=== PATIENT | female | born 1950 | race Two or more races ===

== ENCOUNTER 2017-02-04 10:23 | Inpatient (IN) | payer OTHER, MEDICAID ==
[~2017-02-04] VITALS: Ht 165.1 cm; Wt 72.6 kg
[~2017-02-04 10:23] MED LIST: AMLO10TA2 PO; BENA40TA2 PO; CYAN1TAB43 PO; HYDR25TA4 PO; METF500T4 PO
[2017-02-04 10:54] LABS: BASOPHILS # (AUTO) 0.1 /CMM (0.0-0.2); BASOPHILS % (AUTO) 0.6 % (0.0-2.0); EOSINOPHILS # (AUTO) 0.3 /CMM (0.0-0.7); EOSINOPHILS % (AUTO) 3.9 % (0.0-6.0); HEMATOCRIT 34 % (33-45); HEMOGLOBIN 10.8 g/dL (11.5-14.8); LYMPHOCYTES # (AUTO) 2.1 /CMM (0.8-4.8); LYMPHOCYTES % (AUTO) 23.9 % (20.0-44.0); MEAN CORPUSCULAR HEMOGLOBIN 25 PG (26.0-33.0); MEAN CORPUSCULAR HGB CONC 32 g/dl (31.0-36.0); MEAN CORPUSCULAR VOLUME 79 fL (82-100); MONOCYTES # (AUTO) 0.8 /CMM (0.1-1.30); MONOCYTES % (AUTO) 9.6 % (2.0-12.0); NEUTROPHILS # (AUTO) 5.4 /CMM (1.8-8.9); PLATELET COUNT (AUTO) 336 /CMM (150-450); RDW COEFFICIENT OF VARIATION 14.2 (11.5-15.0); RED BLOOD CELL COUNT(AUTO) 4.27 MIL/uL (4.0-5.2); WHITE BLOOD COUNT (AUTO) 8.7 K/uL (4.3-11.0)
[2017-02-04] MEDS ORDERED: ASPIRIN 325 MG TABLET PO ONE (11:00)
[2017-02-04 11:09] LABS: CALCIUM, SERUM 8.7 mg/dL (8.5-10.1); CARBON DIOXIDE 28 mmol/L (21-32); CHLORIDE 105 mmol/L (98-107); CREATININE 1.3 mg/dL (0.6-1.3); GLUCOSE 188 mg/dL (74-106); POTASSIUM 3.6 mmol/L (3.5-5.1); SODIUM SERUM 142 mmol/L (136-145); UREA NITROGEN, BLOOD 26 mg/dL (7-18)
[2017-02-04] MEDS ORDERED: ASPIRIN 325 MG TABLET ONE ×2 (11:11→11:25)
[2017-02-04 11:12] LABS: INR 0.94 (0.87-1.13); PROTHROMBIN TIME 9.8 SECS (9.5-12.7)
[2017-02-04 11:18] LABS: TROPONIN I < 0.017 ng/mL (0.00-0.056)
[2017-02-04] MEDS ORDERED: GLIM4TAB2 PO (11:29)
--- NOTE | 2017-02-04 11:32 | NUR ---
CALLED NURSING WIRE COATING MACHINE OPERATOR FOR TELE BED
--- NOTE | 2017-02-04 11:34 | NUR ---
PAGED DR BRIGGS SEAT JOINER FOR PANEL
--- NOTE | 2017-02-04 11:50 | NUR ---
TELE 312-2
--- NOTE | 2017-02-04 12:42 | NUR ---
REPORT GIVEN TO KIKA ESTRELLA. PATIENT TO BE ADMITTED TO [facility].
--- NOTE | 2017-02-04 12:42 | NUR ---
TELE1/RN REPORT FROM ER RECEIVED REPORT FROM ER NURSE, KAITLIN FOR PT TO BE ADMITTED FOR CHEST PAIN, UNDER THE CARE OF DR. BRIGGS. AWAITING FOR PT'S ARRIVAL.
[2017-02-04] MEDS ORDERED: AMLODIPINE BESYLATE 10 MG TABLET PO SCH (13:00)
[2017-02-04] MEDS ORDERED: ATORVASTATIN 40 MG TABLET PO SCH (13:00)
[2017-02-04] MEDS ORDERED: GLIMEPIRIDE 4 MG TABLET PO SCH (13:00)
[2017-02-04 13:19] LABS: MAGNESIUM 1.7 mg/dL (1.8-2.4); PHOSPHORUS 4.1 mg/dL (2.5-4.9)
[2017-02-04] MEDS ORDERED: ONDANSETRON HCL/PF 4 MG/2 ML VIAL IVP PRN (13:30)
[2017-02-04] MEDS ORDERED: ZOLPIDEM TARTRATE 5 MG TABLET PO PRN (13:30)
[2017-02-04] MEDS ORDERED: MORPHINE SULFATE INJ 2 MG/ML DISP.SYRIN IV PRN (13:30)
[2017-02-04] MEDS ORDERED: NITROGLYCERIN 0.4 MG/TAB BOTTLE SL PRN (13:30)
[2017-02-04] MEDS ORDERED: ACETAMINOPHEN 325 MG TABLET PO PRN (13:30)
[2017-02-04 13:38] LABS: THYROID STIMULATING HORMONE 1.312 uIU/mL (0.358-3.74)
[2017-02-04] MEDS ORDERED: BENAZEPRIL HCL 20 MG TABLET PO SCH (14:00)
--- NOTE | 2017-02-04 15:20 | NUR ---
TELE/RN ADMITTED TO TELE - ROOM 312#2 PT ARRIVED VIA GURNEY FROM ER ACCOMPANIED BY ER NURSE KAITLIN AND PRESIDENT [employer]. PT AMBULATED WITH STEADY GAIT FROM UNIT HALLWAY TO BED. PT A/O X 4, PER PT SAID SHE HAS INTERMITTENT CHEST PAIN RATED 7/10. ON ROOM AIR SATURATING WELL, TELE BOX PLACED, SINUS RON, HR 58. IV FLUSHED, PATENT WITH POSITIVE BLOOD RETURN, SL. ADMITTING PROTOCOL IN PROGRESS. CL WITHIN REACHED AND SAFETY MAINTAINED.
--- NOTE | 2017-02-04 15:23 | NUR ---
PATIENT TRANSPORTED TO [facility] VIA STRETCHER WITH EMT AND RN. RN, KIKA TO PROVIDE DAVID.
[2017-02-04 16:00] VITALS: BP 131/64
[2017-02-04] MEDS: GLIMEPIRIDE 4 MG TABLET PO SCH (16:43)
[2017-02-04] MEDS: ATORVASTATIN 40 MG TABLET PO SCH (16:43)
[2017-02-04] MEDS: PANTOPRAZOLE 40 MG TABLET.DR PO SCH (16:44)
[2017-02-04] MEDS: AMLODIPINE BESYLATE 10 MG TABLET PO SCH (16:44)
[2017-02-04] MEDS: ASPIRIN 81 MG TAB.CHEW PO SCH (16:44)
[2017-02-04] MEDS: HYDROCHLOROTHIAZIDE 25 MG TABLET PO SCH (16:44)
[2017-02-04] MEDS: METFORMIN 500 MG TABLET PO SCH (16:44)
[2017-02-04] MEDS: BENAZEPRIL HCL 20 MG TABLET PO SCH (16:45)
--- NOTE | 2017-02-04 16:53 | NUR ---
TELE/RN CONSENT - MYOCARDIAL STRESS TEST CONSENT OBTAINED FROM PT FOR MYOCARDIAL STRESS TEST WITH LEXISCAN. CONSENT FILLED IN PT'S CHART.
--- NOTE | 2017-02-04 18:00 | NUR ---
TELE/RN ROUNDS PT NOTED TELE READING FROM SINUS RHYTHM AND OCCASIONAL SINUS ARRHYTHMIA. PT DENIES PAIN AT THIS TIME. PER PT CHEST PAIN IS OCCASIONAL. N O ACUTE CHANGE OF CONDITION NOTED SINCE PT WAS ADMITTED THIS AFTERNOON. MONITORING CONTINUED.
--- NOTE | 2017-02-04 19:19 | NUR ---
TELE/RN AM SHIFT END NOTES ALL NEEDS MET. NO ACUTE CHANGE OF CONDITION SINCE PT WAS ADMITTED THIS AFTERNOON. PT ENDORSED TO PM NURSE TO CONTINUE CARE. ALSO ENDORSED, TO PLACE PT ON NPO AFTER MIDNIGHT FOR MYOCARDIAL STRESS TEST IN AM. CL WITHIN REACHED AND SAFETY MAINTAINED.
--- NOTE | 2017-02-04 19:40 | NUR ---
MORTGAGE LOAN FUNDER NOTE: PATIENT RESTING IN BED, NO ACUTE DISTRESS NOTED. BREATHING EVEN AND UNLABORED, NO SOB NOTED. IV TO RAC IN PLACE. TELE READING ARRHYTHMIA 60. INFORMED PATIENT THAT SHE WILL HAVE STRESS TEST TOMORROW AND NOT TO EAT OR DRINK AFTER MIDNIGHT. CONSENT SIGNED IN CHART. BED LOCKED AND IN LOWEST POSITION, CALL LIGHT IN REACH. WILL CONTINUE TO MONITOR.
[2017-02-04 20:00] VITALS: BP 128/69
[2017-02-04 20:15] VITALS: BP 128/69
[2017-02-04] MEDS ORDERED: ENOXAPARIN SODIUM 40 MG/0.4 ML DISP.SYRIN SQ SCH (21:00)
[2017-02-04] MEDS: CARVEDILOL 12.5 MG TABLET PO SCH (21:08)
[2017-02-05] VITALS (7 sets, daily range): BP systolic 104–113; BP diastolic 50–62
--- NOTE | 2017-02-05 00:15 | NUR ---
FAMILY SUPPORT COORDINATOR NOTE: PATIENT NPO FOR STRESS TEST IN MORNING. INSTRUCTED PATIENT NO TO EAT OR DRINK. WATER REMOVED FROM BEDSIDE. WILL CONTINUE TO MONITOR.
--- NOTE | 2017-02-05 06:15 | NUR ---
HEALTHCARE REPRESENTATIVE NOTE: PATIENT RESTING IN BED, NO ACUTE DISTRESS NOTED. BREATHING EVEN AND UNLABORED, NO SOB NOTED. IV TO RAC IN PLACE. TELE READING ARRHYTHMIA 62. PATIENT NPO SINCE MIDNIGHT FOR STRESS TEST TODAY. BED LOCKED AND IN LOWEST POSITION, CALL LIGHT IN REACH. WILL ENDORSE TO DAY NURSE TO CONTINUE WITH PLAN OF CARE.
[2017-02-05 06:47] LABS: BASOPHILS % (AUTO) 0.6 % (0.0-2.0); EOSINOPHILS # (AUTO) 0.3 /CMM (0.0-0.7); EOSINOPHILS % (AUTO) 4.8 % (0.0-6.0); HEMATOCRIT 31 % (33-45); HEMOGLOBIN 10.1 g/dL (11.5-14.8); LYMPHOCYTES # (AUTO) 1.7 /CMM (0.8-4.8); MEAN CORPUSCULAR HEMOGLOBIN 25 PG (26.0-33.0); MEAN CORPUSCULAR HGB CONC 32 g/dl (31.0-36.0); MEAN CORPUSCULAR VOLUME 78 fL (82-100); MONOCYTES # (AUTO) 0.7 /CMM (0.1-1.30); MONOCYTES % (AUTO) 10.8 % (2.0-12.0); NEUTROPHILS # (AUTO) 3.8 /CMM (1.8-8.9); NEUTROPHILS % (AUTO) 57.8 % (43.0-81.0); PLATELET COUNT (AUTO) 267 /CMM (150-450); RDW COEFFICIENT OF VARIATION 14.9 (11.5-15.0); RED BLOOD CELL COUNT(AUTO) 3.99 MIL/uL (4.0-5.2); WHITE BLOOD COUNT (AUTO) 6.6 K/uL (4.3-11.0)
[2017-02-05 06:59] LABS: ALANINE AMINOTRANSFERASE 24 U/L (12-78); ALBUMIN 3.3 g/dL (3.4-5.0); ALKALINE PHOSPHATASE 100 U/L (46-116); ASPARTATE AMINOTRANSFERASE 30 U/L (15-37); BILIRUBIN,TOTAL 0.3 mg/dL (0.2-1.0); CALCIUM, SERUM 8.8 mg/dL (8.5-10.1); CARBON DIOXIDE 29 mmol/L (21-32); CHLORIDE 103 mmol/L (98-107); GLUCOSE 158 mg/dL (74-106); MAGNESIUM 1.8 mg/dL (1.8-2.4); POTASSIUM 3.6 mmol/L (3.5-5.1); SODIUM SERUM 138 mmol/L (136-145); TOTAL PROTEIN, SERUM 7.3 g/dL (6.4-8.2); UREA NITROGEN, BLOOD 22 mg/dL (7-18)
[2017-02-05 07:01] LABS: TROPONIN I < 0.017 ng/mL (0.00-0.056)
--- NOTE | 2017-02-05 07:30 | NUR ---
RECEIVED PT. IN AM ALERT AND ORIENTED X4,NPO FOR STRESS TEST.NO COMPLAINTS OFFERED.
[2017-02-05 08:43] LABS: CHOLESTEROL 135 mg/dL (<200); HDL CHOLESTEROL 30 mg/dL (40-60); LDL 85 mg/dL (0-99); TRIGLYCERIDES 181 mg/dL (30-150)
[2017-02-05] MEDS ORDERED: REGADENOSON 0.4 MG/5 ML DISP.SYRIN IVP ONE (09:00)
--- NOTE | 2017-02-05 09:30 | NUR ---
DR. CHAPMAN IN TO SEE PT.
[2017-02-05] MEDS: PANTOPRAZOLE 40 MG TABLET.DR PO SCH (11:27)
[2017-02-05] MEDS: ASPIRIN 81 MG TAB.CHEW PO SCH (11:29)
[2017-02-05] MEDS: ATORVASTATIN 40 MG TABLET PO SCH (11:29)
[2017-02-05] MEDS: AMLODIPINE BESYLATE 10 MG TABLET PO SCH (11:30)
[2017-02-05] MEDS: CARVEDILOL 12.5 MG TABLET PO SCH (11:30)
--- NOTE | 2017-02-05 11:30 | NUR ---
TOLERATED STRESS TEST.
[2017-02-05] MEDS: GLIMEPIRIDE 4 MG TABLET PO SCH (12:49)
[2017-02-05] MEDS: METFORMIN 500 MG TABLET PO SCH ×2 (12:49→18:20)
[2017-02-05 13:13] LABS: BASOPHILS % (AUTO) 0.3 % (0.0-2.0); EOSINOPHILS # (AUTO) 0.2 /CMM (0.0-0.7); EOSINOPHILS % (AUTO) 2.7 % (0.0-6.0); HEMATOCRIT 30 % (33-45); HEMOGLOBIN 9.8 g/dL (11.5-14.8); LYMPHOCYTES # (AUTO) 1.3 /CMM (0.8-4.8); LYMPHOCYTES % (AUTO) 19.3 % (20.0-44.0); MEAN CORPUSCULAR HEMOGLOBIN 25 PG (26.0-33.0); MEAN CORPUSCULAR HGB CONC 33 g/dl (31.0-36.0); MEAN CORPUSCULAR VOLUME 77 fL (82-100); MONOCYTES # (AUTO) 0.6 /CMM (0.1-1.30); MONOCYTES % (AUTO) 8.3 % (2.0-12.0); NEUTROPHILS # (AUTO) 4.6 /CMM (1.8-8.9); NEUTROPHILS % (AUTO) 69.4 % (43.0-81.0); PLATELET COUNT (AUTO) 288 /CMM (150-450); RDW COEFFICIENT OF VARIATION 14.7 (11.5-15.0); RED BLOOD CELL COUNT(AUTO) 3.93 MIL/uL (4.0-5.2); WHITE BLOOD COUNT (AUTO) 6.7 K/uL (4.3-11.0)
[2017-02-05] MEDS ORDERED: SOD FERRIC GLUC 125 MG in IV NS 0.9% 100 ML IV SCH (14:00)
--- NOTE | 2017-02-05 14:30 | NUR ---
MALIK FERREIRA IN TO SEE PT.TO DC LATER IF STRESS TEST NORMAL.
[2017-02-05] MEDS: HYDROCHLOROTHIAZIDE 25 MG TABLET PO SCH (17:00)
[2017-02-05] MEDS: BENAZEPRIL HCL 20 MG TABLET PO SCH (17:00)
--- NOTE | 2017-02-05 18:00 | NUR ---
DC ORDER GIVEN.MALIK FERREIRA CALLED REGARDING NEW MEDS,LIPITOR,COREG AND ASA,OK,D TO ORDER.TO BE ON MED RECON SHEET WITH MALIK FERREIRA,Nataly AMRITA # FOR FILLING AT PHARMACY.
--- NOTE | 2017-02-05 19:00 | NUR ---
WES. KAREEM AND RN REVIEWED ALL DC INSTRUCTIONS.GIVEN MED RECON SHEETS,BELONGING SHEET SIGNED.HEP LOCK OUT. TAKEN TO LOBBY ACCOMPANIED BY ZIPPER CUTTER AND FAMILY.
[2017-02-05] MEDS ORDERED: ASPI81TA2 PO (22:34)
[2017-02-05] MEDS ORDERED: CARV12.52 PO (22:34)
[2017-02-05] MEDS ORDERED: ATOR40TA PO (22:34)
== END 2017-02-05 19:00 | disposition home or self-care (01) | DRG 206 ==
LOC: ER 10:24 → TELE 15:17 → MED 02-05 08:45
PROVIDERS: ADMIT Internal Medicine; ATTEND Internal Medicine
DX: M94.0 Chondrocostal junction syndrome [Tietze] (principal); I10 Essential (primary) hypertension; E78.5 Hyperlipidemia, unspecified; E11.65 Type 2 diabetes mellitus with hyperglycemia; Z79.84 Long term (current) use of oral hypoglycemic drugs; D64.9 Anemia, unspecified
CPT/HCPCS: 36415; 71010-TC; 80048-TC; 80053-TC; 80061-TC; 82728-TC; 82962-TC; 83540-TC; 83735-TC; 84100-TC; 84439-TC; 84443-TC; 84484-TC; 85025-TC; 85730-TC; 87081-TC; 93307-TC; A4606; A9502; J1650; J2785; J2916; J7030; Z7610

== ENCOUNTER 2018-04-26 09:05 | Emergency (ER) | payer OTHER, MEDICAID ==
[~2018-04-26] VITALS: Ht 152.4 cm; Wt 75.7 kg
[~2018-04-26 09:05] MED LIST changes: -AMLO10TA2 PO; +AMLO10TA6 PO; +ASPI-1169 PO; +ATOR40TA PO; -BENA40TA2 PO; +BENA40TA8 PO; +CARV12.52 PO; -CYAN1TAB43 PO; +GLIM4TAB2 PO; +METF-440 PO; -METF500T4 PO
--- NOTE | 2018-04-26 09:38 | NUR ---
PT WALKED INTO EMERGENCY ROOM GIVEN URINE SAMPLE FOR C/C OF RLL ABDOMINAL PAIN SINCE LAST SATURDAY COMES AND GOES NO BURNING IN URINE OR BLOOD IN STOOL SAMPLE PT STOOLED THIS AM. PT ALET AND ORIENTS X3. ABLE TO UNDRES SELF
[2018-04-26] MEDS ORDERED: LIDOCAINE VISCOUS 2% UD 15 ML UDC ONE (09:57)
[2018-04-26] MEDS ORDERED: MAG HYDROX/AL HYDROX/SIMETH 30 ML UDC ONE (10:00)
[2018-04-26] MEDS ORDERED: MAG HYDROX/AL HYDROX/SIMETH 30 ML UDC PO ONE (10:00)
[2018-04-26] MEDS ORDERED: LIDOCAINE VISCOUS 2% UD 15 ML UDC MM ONE (10:00)
[2018-04-26 10:27] LABS: BASOPHILS % (AUTO) 0.3 % (0.0-2.0); EOSINOPHILS % (AUTO) 6.8 % (0.0-6.0); HEMATOCRIT 35 % (33-45); HEMOGLOBIN 10.9 g/dL (11.5-14.8); LYMPHOCYTES # (AUTO) 1.5 /CMM (0.8-4.8); LYMPHOCYTES % (AUTO) 21.5 % (20.0-44.0); MEAN CORPUSCULAR HGB CONC 31 g/dl (31.0-36.0); MEAN CORPUSCULAR VOLUME 84 fL (82-100); MONOCYTES # (AUTO) 0.7 /CMM (0.1-1.30); MONOCYTES % (AUTO) 9.2 % (2.0-12.0); NEUTROPHILS # (AUTO) 4.5 /CMM (1.8-8.9); NEUTROPHILS % (AUTO) 62.2 % (43.0-81.0); PLATELET COUNT (AUTO) 261 /CMM (150-450); RDW COEFFICIENT OF VARIATION 15.1 (11.5-15.0); RED BLOOD CELL COUNT(AUTO) 4.16 MIL/uL (4.0-5.2); WHITE BLOOD COUNT (AUTO) 7.2 K/uL (4.3-11.0)
[2018-04-26 10:35] LABS: CREATININE 1.1 mg/dL (0.6-1.3); POTASSIUM 3.9 mmol/L (3.5-5.1)
[2018-04-26 10:41] LABS: ALBUMIN 3.7 g/dL (3.4-5.0); BILIRUBIN,DIRECT 0.1 mg/dL (0.0-0.2); BILIRUBIN,TOTAL 0.4 mg/dL (0.2-1.0); TOTAL PROTEIN, SERUM 8.4 g/dL (6.4-8.2)
--- NOTE | 2018-04-26 11:24 | NUR ---
DPatient discharged to home in stable condition. Written and verbal after care instructions given. Patient verbalizes understanding of instruction.
[2018-04-26 11:28] VITALS: BP 122/65
== END 2018-04-26 11:29 | disposition home or self-care (01) ==
LOC: ER 09:08
DX: R10.13 Epigastric pain (principal); K27.9 Peptic ulcer, site unspecified, unspecified as acute or chronic, without hemorrhage or perforation; E11.9 Type 2 diabetes mellitus without complications; I10 Essential (primary) hypertension; E78.5 Hyperlipidemia, unspecified; E78.00 Pure hypercholesterolemia, unspecified; Z98.890 Other specified postprocedural states; Z79.82 Long term (current) use of aspirin
CPT/HCPCS: 36415; 80048; 80076; 83690; 85025; 99284; A4606; Z7610

== ENCOUNTER → 2018-07-08 | Emergency (ER) | payer OTHER, MEDICAID ==
[~2018-07-08] VITALS: Ht 160 cm; Wt 73.9 kg
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
[2018-07-08 14:06] VITALS: BP 161/74
--- NOTE | 2018-07-08 14:06 | NUR ---
PT DISCHARGED TO HOME FAMILY WILL BUILDING RIGGER GIVEN ACI AND PRESCRIPTION
== END | disposition home or self-care (01) ==
LOC: ER 12:53
DX: M54.5 Low back pain (principal); M54.2 Cervicalgia; I10 Essential (primary) hypertension; E11.9 Type 2 diabetes mellitus without complications; E78.00 Pure hypercholesterolemia, unspecified; Z98.890 Other specified postprocedural states; Z79.82 Long term (current) use of aspirin; V49.49XA Driver injured in collision with other motor vehicles in traffic accident, initial encounter; Y93.89 Activity, other specified; Y92.410 Unspecified street and highway as the place of occurrence of the external cause; Y99.8 Other external cause status
CPT/HCPCS: 99283; A4606; Z7610

== ENCOUNTER 2019-02-09 12:05 | Emergency (ER) | payer OTHER, MEDICAID ==
[~2019-02-09] VITALS: Ht 160 cm; Wt 68.0 kg
[~2019-02-09 12:05] MED LIST changes: -AMLO10TA6 PO; +AMLO10TA7 PO
[2019-02-09 12:56] LABS: BASOPHILS # (AUTO) 0.1 /CMM (0.0-0.2); EOSINOPHILS % (AUTO) 1.7 % (0.0-6.0); HEMATOCRIT 28 % (33-45); HEMOGLOBIN 8.9 g/dL (11.5-14.8); LYMPHOCYTES # (AUTO) 1.3 /CMM (0.8-4.8); MEAN CORPUSCULAR HGB CONC 33 g/dl (31.0-36.0); MEAN CORPUSCULAR VOLUME 78 fL (82-100); MONOCYTES # (AUTO) 0.8 /CMM (0.1-1.30); MONOCYTES % (AUTO) 12.7 % (2.0-12.0); NEUTROPHILS % (AUTO) 63.6 % (43.0-81.0); PLATELET COUNT (AUTO) 298 /CMM (150-450); WHITE BLOOD COUNT (AUTO) 6.3 K/uL (4.3-11.0)
[2019-02-09 13:16] LABS: CALCIUM, SERUM 8.5 mg/dL (8.5-10.1); CARBON DIOXIDE 27 mmol/L (21-32); CHLORIDE 105 mmol/L (98-107); CREATININE 1.2 mg/dL (0.6-1.3); GLUCOSE 122 mg/dL (74-106); POTASSIUM 4.2 mmol/L (3.5-5.1); SODIUM SERUM 139 mmol/L (136-145); UREA NITROGEN, BLOOD 22 mg/dL (7-18)
[2019-02-09 13:20] LABS: B-TYPE NATRIURETIC PEPTIDE 213 PG/ML (0-125)
--- NOTE | 2019-02-09 14:25 | NUR ---
Updated by ER provider -For discharge Patient discharged to home in stable condition. Written and verbal after care instructions given. Patient verbalizes understanding of instruction.
[2019-02-09 14:29] VITALS: BP 129/65
== END 2019-02-09 14:33 | disposition home or self-care (01) ==
LOC: ER 12:05
DX: R60.0 Localized edema (principal); D64.9 Anemia, unspecified; E11.9 Type 2 diabetes mellitus without complications; I10 Essential (primary) hypertension; E78.00 Pure hypercholesterolemia, unspecified; M19.90 Unspecified osteoarthritis, unspecified site; Z98.890 Other specified postprocedural states; Z79.82 Long term (current) use of aspirin; Z79.84 Long term (current) use of oral hypoglycemic drugs; Z79.899 Other long term (current) drug therapy
CPT/HCPCS: 36415; 71045-TC; 80048-TC; 83880; 84484-TC; 85025-TC

== ENCOUNTER 2019-04-15 10:02 | Emergency (ER) | payer MEDICARE, MEDICAID ==
[~2019-04-15] VITALS: Ht 165.1 cm; Wt 77.1 kg
--- NOTE | 2019-04-15 10:12 | NUR ---
BIBDAUGHTER, FROM HOME, C/O DIZZINESS AND R EAR RINGING x 1 WEEK, TO ER BED 9, HOOKED TO MONITOR, CHANGED TO GOWN, AWAITING MD GASTON.
[2019-04-15 10:46] LABS: BASOPHILS % (AUTO) 0.8 % (0.0-2.0); EOSINOPHILS % (AUTO) 4.9 % (0.0-6.0); HEMATOCRIT 27 % (33-45); HEMOGLOBIN 8.5 g/dL (11.5-14.8); LYMPHOCYTES # (AUTO) 1.2 /CMM (0.8-4.8); LYMPHOCYTES % (AUTO) 20.3 % (20.0-44.0); MEAN CORPUSCULAR HGB CONC 32 g/dl (31.0-36.0); MEAN CORPUSCULAR VOLUME 77 fL (82-100); MONOCYTES # (AUTO) 0.6 /CMM (0.1-1.30); MONOCYTES % (AUTO) 10.3 % (2.0-12.0); NEUTROPHILS # (AUTO) 3.8 /CMM (1.8-8.9); NEUTROPHILS % (AUTO) 63.7 % (43.0-81.0); PLATELET COUNT (AUTO) 304 /CMM (150-450); RED BLOOD CELL COUNT(AUTO) 3.42 MIL/uL (4.0-5.2); WHITE BLOOD COUNT (AUTO) 5.9 K/uL (4.3-11.0)
[2019-04-15 10:53] LABS: CALCIUM, SERUM 9.3 mg/dL (8.5-10.1); CARBON DIOXIDE 25 mmol/L (21-32); CHLORIDE 103 mmol/L (98-107); CREATININE 1.2 mg/dL (0.6-1.3); GLUCOSE 161 mg/dL (74-106); POTASSIUM 4.2 mmol/L (3.5-5.1); SODIUM SERUM 138 mmol/L (136-145); UREA NITROGEN, BLOOD 22 mg/dL (7-18)
--- NOTE | 2019-04-15 11:50 | NUR ---
PATIENT WHEELED OUT VIA GURNEY FOR CTA
[2019-04-15] MEDS ORDERED: IV NS 0.9% 250 ML IV ONE (11:57)
[2019-04-15] MEDS ORDERED: IOHEXOL-350 100 ML VIAL IV ONE (11:57)
[2019-04-15] MEDS ORDERED: CT SWABBABLE VALVE TRANS SET 1 EA INFUS.SET MC ONE (11:57)
--- NOTE | 2019-04-15 14:00 | NUR ---
IV removed. Catheter intact and site benign. Pressure and 4x4 applied to site. No bleeding noted.Patient discharged to home in stable condition. Written and verbal after care instructions given. Patient verbalizes understanding of instruction.
[2019-04-15 14:21] VITALS: BP 110/60
== END 2019-04-15 14:00 | disposition home or self-care (01) ==
LOC: ER 10:02
DX: D64.9 Anemia, unspecified (principal); M26.601 Right temporomandibular joint disorder, unspecified; I10 Essential (primary) hypertension; E11.9 Type 2 diabetes mellitus without complications; E78.00 Pure hypercholesterolemia, unspecified; M19.90 Unspecified osteoarthritis, unspecified site; Z98.890 Other specified postprocedural states; Z79.899 Other long term (current) drug therapy; Z79.84 Long term (current) use of oral hypoglycemic drugs
CPT/HCPCS: 36415; 70496; 70498; 71045; 80048; 84484; 85025; 99284; J7050; Q9967

== ENCOUNTER 2024-07-15 12:01 | Inpatient (IN) | payer MEDICAID, OTHER ==
[~2024-07-15] VITALS: Ht 165.1 cm; Wt 85.3 kg
[~2024-07-15 12:01] MED LIST changes: +AMLO-213 PO; -AMLO10TA7 PO; -GLIM4TAB2 PO; +GLIM4TAB37 PO
[2024-07-15 13:16] LABS: CARBON DIOXIDE 26 mmol/L (21-32); CHLORIDE 112 mmol/L (98-107); CREATININE 1.4 mg/dL (0.6-1.3); GLUCOSE 261 mg/dL (74-106); POTASSIUM 4.9 mmol/L (3.5-5.1); SODIUM SERUM 145 mmol/L (136-145); UREA NITROGEN, BLOOD 24 mg/dL (7-18)
[2024-07-15 13:30] LABS: NT-PRO BNP 1162 pg/mL (0-125)
[2024-07-15 13:45] LABS: BASOPHILS % (AUTO) 0.5 % (0.0-2.0); EOSINOPHILS # (AUTO) 0.1 K/uL (0.0-0.7); EOSINOPHILS % (AUTO) 1.7 % (0.0-6.0); HEMATOCRIT 26 % (33-45); HEMOGLOBIN 8.4 g/dL (11.5-14.8); LYMPHOCYTES # (AUTO) 0.9 K/uL (0.8-4.8); MEAN CORPUSCULAR HEMOGLOBIN 26 PG (26.0-33.0); MEAN CORPUSCULAR HGB CONC 32 g/dl (31.0-36.0); MEAN CORPUSCULAR VOLUME 82 fL (82-100); MONOCYTES # (AUTO) 0.7 K/uL (0.1-1.30); MONOCYTES % (AUTO) 10.7 % (2.0-12.0); NEUTROPHILS # (AUTO) 4.4 K/uL (1.8-8.9); NEUTROPHILS % (AUTO) 72.1 % (43.0-81.0); PLATELET COUNT (AUTO) 210 K/uL (150-450); RED BLOOD CELL COUNT(AUTO) 3.16 MIL/uL (4.0-5.2); RED CELL DISTRIBUTION WIDTH 16.6 % (11.5-15.0); WHITE BLOOD COUNT (AUTO) 6.1 K/uL (4.3-11.0)
[2024-07-15] MEDS ORDERED: CARV25TA PO (14:23)
[2024-07-15] MEDS ORDERED: HYDR-4075 PO (14:23)
[2024-07-15] MEDS ORDERED: ATOR40TA PO (14:23)
[2024-07-15] MEDS ORDERED: GABA300C PO (14:23)
[2024-07-15] MEDS ORDERED: TELM80TA2 PO (14:23)
[2024-07-15] MEDS ORDERED: ACETAMINOPHEN ES 500 MG TABLET ONE (14:41)
[2024-07-15] MEDS ORDERED: FUROSEMIDE 40 MG/4 ML VIAL ONE (14:41)
[2024-07-15] MEDS: FUROSEMIDE 40 MG/4 ML VIAL IV ONE (14:51)
[2024-07-15] MEDS: ACETAMINOPHEN ES 500 MG TABLET PO ONE (14:51)
[2024-07-15 16:00] VITALS: BP 142/54; TEMP 98.1; O2SAT 100
[2024-07-15] MEDS ORDERED: MAG HYDROX/AL HYDROX/SIMETH 30 ML UDC PO PRN (19:00)
[2024-07-15] MEDS ORDERED: ONDANSETRON HCL/PF 4 MG/2 ML VIAL IVP PRN (19:00)
[2024-07-15] MEDS ORDERED: Z GUARD REMEDY 4 OZ OINT TP PRN (19:00)
[2024-07-15] MEDS ORDERED: MAGNESIUM HYDROXIDE 30 ML UDC PO PRN (19:00)
[2024-07-15 20:00] VITALS: BP 127/65; TEMP 98.3; O2SAT 100
[2024-07-15] MEDS: ENOXAPARIN SODIUM 30 MG/0.3 ML DISP.SYRIN SQ SCH (20:59)
[2024-07-15] MEDS ORDERED: DEXTROSE 50%-WATER 50 ML DISP.SYRIN IV PRN (21:30)
[2024-07-15] MEDS: BLOOD SUGAR DIAGNOSTIC 1 EACH STRIP IN SCH (22:02)
[2024-07-15] MEDS: INSULIN REGULAR, HUMAN 100 UNIT/ML 3 ML VIAL SQ PRN (22:04)
[2024-07-16] VITALS: BP 134/73; TEMP 98; O2SAT 100
[2024-07-16 04:00] VITALS: BP 145/53; TEMP 98.5; O2SAT 97
[2024-07-16 06:31] LABS: BASOPHILS % (AUTO) 0.8 % (0.0-2.0); EOSINOPHILS # (AUTO) 0.2 K/uL (0.0-0.7); EOSINOPHILS % (AUTO) 3.4 % (0.0-6.0); HEMATOCRIT 27 % (33-45); HEMOGLOBIN 8.7 g/dL (11.5-14.8); LYMPHOCYTES # (AUTO) 1.1 K/uL (0.8-4.8); LYMPHOCYTES % (AUTO) 18.6 % (20.0-44.0); MEAN CORPUSCULAR HEMOGLOBIN 27 PG (26.0-33.0); MEAN CORPUSCULAR HGB CONC 32 g/dl (31.0-36.0); MEAN CORPUSCULAR VOLUME 82 fL (82-100); MONOCYTES # (AUTO) 0.5 K/uL (0.1-1.30); MONOCYTES % (AUTO) 9.4 % (2.0-12.0); NEUTROPHILS # (AUTO) 3.9 K/uL (1.8-8.9); NEUTROPHILS % (AUTO) 67.8 % (43.0-81.0); PLATELET COUNT (AUTO) 232 K/uL (150-450); RED BLOOD CELL COUNT(AUTO) 3.29 MIL/uL (4.0-5.2); RED CELL DISTRIBUTION WIDTH 16.5 % (11.5-15.0); WHITE BLOOD COUNT (AUTO) 5.8 K/uL (4.3-11.0)
[2024-07-16 06:42] LABS: CALCIUM, SERUM 8.5 mg/dL (8.5-10.1); CREATININE 1.3 mg/dL (0.6-1.3); MAGNESIUM 1.9 mg/dL (1.8-2.4); PHOSPHORUS 4.1 mg/dL (2.5-4.9); POTASSIUM 4.5 mmol/L (3.5-5.1)
[2024-07-16 08:00] VITALS: BP 154/66; TEMP 98; O2SAT 97
[2024-07-16] MEDS: CARVEDILOL 12.5 MG TABLET PO SCH (08:55)
[2024-07-16] MEDS: FUROSEMIDE 40 MG/4 ML VIAL IV SCH (08:55)
[2024-07-16] MEDS: AMLODIPINE BESYLATE 10 MG TABLET PO SCH (08:56)
[2024-07-16] MEDS: LOSARTAN POTASSIUM 50 MG TABLET PO SCH (08:56)
[2024-07-16] MEDS: GABAPENTIN 300 MG CAPSULE PO SCH (08:56)
[2024-07-16 12:00] VITALS: BP 134/63; TEMP 98.2; O2SAT 99
[2024-07-16] MEDS: VALSARTAN 80 MG TABLET PO SCH (12:46)
[2024-07-16 16:00] VITALS: BP 149/64; TEMP 98; O2SAT 99
[2024-07-16] MEDS: ACETAMINOPHEN 325 MG TABLET PO PRN (16:44)
[2024-07-16 20:00] VITALS: BP 154/66; TEMP 98; O2SAT 97
[2024-07-17] VITALS: BP 134/63; TEMP 98.2; O2SAT 99
[2024-07-17 04:00] VITALS: BP 128/63; TEMP 97.5; O2SAT 98
[2024-07-17 06:15] LABS: BASOPHILS % (AUTO) 0.8 % (0.0-2.0); EOSINOPHILS # (AUTO) 0.2 K/uL (0.0-0.7); EOSINOPHILS % (AUTO) 3.9 % (0.0-6.0); HEMATOCRIT 29 % (33-45); HEMOGLOBIN 9.5 g/dL (11.5-14.8); LYMPHOCYTES # (AUTO) 1.1 K/uL (0.8-4.8); LYMPHOCYTES % (AUTO) 19.4 % (20.0-44.0); MEAN CORPUSCULAR HEMOGLOBIN 26 PG (26.0-33.0); MEAN CORPUSCULAR HGB CONC 33 g/dl (31.0-36.0); MEAN CORPUSCULAR VOLUME 81 fL (82-100); MONOCYTES # (AUTO) 0.7 K/uL (0.1-1.30); NEUTROPHILS # (AUTO) 3.8 K/uL (1.8-8.9); NEUTROPHILS % (AUTO) 63.9 % (43.0-81.0); PLATELET COUNT (AUTO) 252 K/uL (150-450); RED BLOOD CELL COUNT(AUTO) 3.58 MIL/uL (4.0-5.2); RED CELL DISTRIBUTION WIDTH 16.5 % (11.5-15.0); WHITE BLOOD COUNT (AUTO) 5.9 K/uL (4.3-11.0)
[2024-07-17 06:39] LABS: CALCIUM, SERUM 8.4 mg/dL (8.5-10.1); CREATININE 1.4 mg/dL (0.6-1.3); POTASSIUM 4.2 mmol/L (3.5-5.1)
[2024-07-17 08:00] VITALS: BP 153/56; TEMP 97.9; O2SAT 92
[2024-07-17 09:23] LABS: CHOLESTEROL 99 mg/dL (<200); FERRITIN 72 ng/mL (8-388); HDL CHOLESTEROL 33 mg/dL (40-60); LDL 38 mg/dL (0-99); TRIGLYCERIDES 76 mg/dL (30-150)
[2024-07-17 09:41] LABS: IRON, SERUM 24 ug/dl (50-175); TOTAL IRON BINDING CAPACITY 229 ug/dl (250-450)
[2024-07-17 12:00] VITALS: BP 130/58; TEMP 98.2; O2SAT 92
[2024-07-17] MEDS ORDERED: NITROGLYCERIN 0.4 MG/TAB BOTTLE ONE (12:20)
[2024-07-17] MEDS ORDERED: METOPROLOL TARTRATE INJ 5 MG/5 ML AMPUL ONE (12:20)
[2024-07-17] MEDS ORDERED: IOHEXOL-350 100 ML VIAL IV ONE (12:20)
[2024-07-17] MEDS ORDERED: CT SWABBABLE VALVE TRANS SET 1 EA INFUS.SET MC ONE (12:20)
[2024-07-17] MEDS ORDERED: IV NS 0.9% 250 ML IV ONE (12:21)
[2024-07-17] MEDS: METOPROLOL TARTRATE INJ 5 MG/5 ML AMPUL IVP PRN (12:30)
[2024-07-17] MEDS: NITROGLYCERIN 0.4 MG/TAB BOTTLE SL ONE (12:40)
[2024-07-17] MEDS: SOD FERRIC GLUC 125 MG in IV NS 0.9% 100 ML IV SCH (15:40)
[2024-07-17 16:00] VITALS: BP 125/60; TEMP 97.9; O2SAT 96
[2024-07-17 18:23] VITALS: BP 133/56
== END 2024-07-17 20:22 | disposition home or self-care (01) | DRG 812 ==
LOC: ER 12:05 → TELE1 14:50
PROVIDERS: ADMIT Internal Medicine; ATTEND Internal Medicine
DX: D50.9 Iron deficiency anemia, unspecified (principal); G47.33 Obstructive sleep apnea (adult) (pediatric); E11.40 Type 2 diabetes mellitus with diabetic neuropathy, unspecified; E78.00 Pure hypercholesterolemia, unspecified; M19.90 Unspecified osteoarthritis, unspecified site; Z98.891 History of uterine scar from previous surgery; Z88.6 Allergy status to analgesic agent; Z79.899 Other long term (current) drug therapy; E66.9 Obesity, unspecified; J45.909 Unspecified asthma, uncomplicated; Z68.31 Body mass index [BMI] 31.0-31.9, adult; I10 Essential (primary) hypertension
CPT/HCPCS: 36415; 71045-TC; 75574; 80048-TC; 80061-TC; 82728-TC; 82962-TC; 83540-TC; 83735-TC; 83880; 84100-TC; 84484-TC; 85025-TC; 93307-TC; G0378; J1650; J1815; J1940; J2916; J3490; J7030; J7050; Q9967